=== PATIENT | female | born 1955 | race Caucasian/White ===

== ENCOUNTER → 2018-05-15 | Outpatient (CLI) | payer OTHER ==
[~2018-05-15] MED LIST: CALCIUM PO; CYMBALTA20 MG PO; CYMBALTA30 MG PO; ELMIRON PO; EVISTA PO; GLUCOSAMINE-CH1 EA33 PO; HYDROXYZINE HCL50 MG PO; IRON PO; LEVOXYL75 MCG PO; LISINOPRIL5 MG PO; MOBIC7.5 MG PO; PREVACID 30MG C30 M1 PO; RESTASIS1 EACH OP; VALIUM5 MG PO; VITAMIN D1000 UNI1 PO
--- NOTE | ~2018-05-15 | 2DMMODE ---
[facility] [address] [place] [address] 2 D/M-MODE ECHOCARDIOGRAM Name: MYA DODGE [facility] Room #: REG [facility]#: [id number] Admission: 05/15/18 Attend Phys: Luis Carlos Guillen MD Discharge: Date of : 55 Date of Service: 05/15/18 1042 Report #: [id number] THIS REPORT FOR: //name// APPROVED REPORT Study performed: 05/15/2018 09:06:18 EXAM: Comprehensive 2D, Doppler, and color-flow Echocardiogram Patient Location: Out-Patient Room #: Echo lab 2 Status: routine BSA: 1.56 HR: 68 bpm BP: 124/64 mmHg Rhythm: NSR Other Information Study Quality: Adequate Indications Hypertension/HDD Migraines 2D Dimensions RVDd: 26.07 mm IVSd: 13.19 (7-11mm) LVOT Diam: 18.60 (18-24mm) LVDd: 33.68 mm PWd: 10.32 (7-11mm) Ascending Ao: 27.13 (22-36mm) LVDs: 24.72 (25-40mm) Aortic Root: 25.87 mm IVC: 17.00 mm Volumes Left Atrial Volume (Systole) Single Plane 4CH: 27.51 mL Single Plane 2CH: 27.57 mL LA ESV Index: 21.00 mL/m2 Aortic Valve AoV Peak Levy.: 1.17 m/s AO Peak Gr.: 5.50 mmHg LVOT Max P.51 mmHg LVOT Max V: 1.06 m/s [place] Vmax: 2.46 cm2 Mitral Valve E/A Ratio: 1.1 MV Decel. Time: 201.[address] [facility] [address] [place] [address] 2 D/M-MODE ECHOCARDIOGRAM Name: MYA DODGE [facility] Room #: REG [facility]#: [id number] Admission: 05/15/18 Attend Phys: Luis Carlos Guillen MD Discharge: Date of : 55 Date of Service: 05/15/18 1042 Report #: [id number] MV E Max Levy.: 0.77 m/s MV A Levy.: 0.67 m/s MV PHT: 58.54 ms IVRT: 96.89 ms Pulmonary Valve PV Peak Levy.: 0.82 m/s PV Peak Gr.: 2.68 mmHg Pulmonary Vein P Vein S: 0.95 m/s P Vein A: 0.27 m/s P Vein D: 0.42 m/s P Vein A Dur.: 120.0 msec P Vein S/D Ratio: 2.26 Tricuspid Valve TR Peak Levy.: 2.11 m/s TR Peak Gr.: 17.88 mmHg PA Pressure: 23.00 mmHg Left Ventricle The left ventricle is normal size. There is normal LV segmental wall motion. There is normal left ventricular wall thickness. The left ventricular systolic function is normal. The left ventricular ejection fraction is within the normal range. LVEF is 55-60%. The left ventricular diastolic function is normal. Right Ventricle The right ventricle is normal size. The right ventricular systolic function is normal. Atria The left atrium size is normal. No shunting by contrast bubble injection The right atrium size is normal. Aortic Valve The aortic valve is normal in structure. No aortic regurgitation is present. There is no aortic valvular stenosis. Mitral Valve The mitral valve is normal in structure. Trace mitral regurgitation. No evidence of mitral valve stenosis. Tricuspid Valve The tricuspid valve is normal in structure. There is mild tricuspid regurgitation. Estimated PAP 23 mmHg. There is no pulmonary hypertension. [address] [address] 2 D/M-MODE ECHOCARDIOGRAM Name: MYA DODGE [facility] Room #: REG [facility]#: [id number] Admission: 05/15/18 Attend Phys: Luis Carlos Guillen MD Discharge: Date of : 55 Date of Service: 05/15/18 1042 Report #: [id number] Pulmonic Valve The pulmonary valve is normal in structure. There is no pulmonic valvular regurgitation. Great Vessels The aortic root is normal in size. IVC is normal in size and collapses >50% with inspiration. Pericardium There is no pericardial effusion. <Conclusion> The left ventricular systolic function is normal. There is normal LV segmental wall motion. LVEF 55-60%. No shunting by contrast bubble injection The aortic valve is normal in structure. No aortic regurgitation or stenosis The mitral valve is normal in structure. Trace mitral regurgitation. There is mild tricuspid regurgitation. Estimated pulmonary artery pressure of 23 mmHg. There is no pericardial effusion. <ELECTRONICALLY SIGNED> By: Leighton Lamb MD, FACC 05/15/181041 [id number] Leighton Lamb MD, FACC /INF
== END ==
LOC: CV 08:56
DX: I07.1 Rheumatic tricuspid insufficiency (principal); I10 Essential (primary) hypertension; G43.909 Migraine, unspecified, not intractable, without status migrainosus